=== PATIENT | female | born 1995 | race Caucasian/White ===

== ENCOUNTER 2019-03-21 10:45 | Outpatient (CLI) | payer BC, MEDICAID ==
[~2019-03-21] VITALS: Ht 154.9 cm; Wt 65.5 kg
[2019-03-21 10:50] VITALS: BP 123/74; PULSE 88; TEMP 98.2
[2019-03-21] MEDS ORDERED: PRENATAL VITAMI1 TA3 PO (10:59)
[2019-03-21] MEDS ORDERED: ZOLOFT 50MG50 MG PO (10:59)
--- NOTE | 2019-03-21 11:10 | NUR ---
G1 at 38.4 weeks gestation to LDR3 with her boyfriend with c/o possible SROM. Patient states that when she went to the bathroom around 0700 this morning there was a small "wet spot" on her underwear, she denies vaginal bleeding and reports good movement. Patient changed into gown and wedged to left side in bed. EFMs explained and applied. FHR 140 bpm and reactive. Irritable CTX pattern per toco, patient denies feeling any CTX. VSS. SVE /-2, amniotrace to vagina remains yellow. Plan of care reviewed with patient and boyfriend.
--- NOTE | 2019-03-21 11:30 | NUR ---
Discharge instructions reviewed, questions answered.
== END 2019-03-21 11:38 | disposition home or self-care (01) ==
LOC: LDRO 10:45
DX: Z34.03 Encounter for supervision of normal first pregnancy, third trimester (principal); Z3A.38 38 weeks gestation of pregnancy

== ENCOUNTER 2019-03-23 05:32 | Inpatient (IN) | payer MEDICAID ==
[2019-03-23] VITALS (56 sets, daily range): BP systolic 103–138; BP diastolic 56–85; PULSE 52–110; TEMP 97.4–98.3
[~2019-03-23] VITALS: Ht 152.4 cm; Wt 65.9 kg
[~2019-03-23 05:32] MED LIST: PRENATAL VITAMI1 TA3 PO; ZOLOFT 50MG50 MG PO
--- NOTE | 2019-03-23 05:45 | NUR ---
Pt arrived on unit escorted by boyfriend and with complaints of possible rupture. Pt reports occasional contractions and normal movement. EFM and toco monitors started. Amnitest negative. SVE by this RN /. Vital signs WNL. Plan of care for labor assessment reviewed.
--- NOTE | 2019-03-23 07:00 | NUR ---
Patient denies feeling any leaking of fluid but feels "wet." Dr. Loera called with report and order to do amniosure. 0713: Amniosure completed and sent to lab. Patient denies feeling contractions.
--- NOTE | 2019-03-23 07:40 | NUR ---
Amniosure positive. Dr. Loera called and orders received to admit and start pitocin per protocol. In patient room. plan of care discussed and patient agrees with plan of care. Consents signed. 0805: IV started in left wrist and LR infusing without difficulty. Labs collected from IV site and sent to lab. 0815: Pitocin started per protocol. Patient resting in bed, call light in reach and denies need.
[2019-03-23 08:36] LABS: BASO % 0.3 % (0.0-2.0); EOS # 0.1 (0.0-0.7); EOS % 1.2 % (0-4.0); GRAN # 5.4 (1.4-6.5); HEMOGLOBIN 11.3 g/dl (12.5-16.0); LYMPH # 1.3 (1.2-3.4); LYMPH % 17.3 % (20.0-51.0); MEAN CELL VOLUME 85 fl (80.0-100.0); MEAN CORPUSCULAR HEMOGLOBIN 27 pg (27.0-31.0); MEAN CORPUSCULAR HGB CONC 32 g/dl (33.0-37.0); MEAN PLATELET VOLUME 10.2 fl (7.4-10.4); MONO # 0.7 (0.1-0.6); MONO % 8.8 % (1.7-9.3); PLATELET COUNT 186 K/mm3 (130-400); RED BLOOD COUNT 4.12 M/mm3 (4.10-5.30); REDCELL DISTRIBUTION WIDTH-CV 13.3 % (11.5-14.5)
[2019-03-23 08:38] LABS: HEMATOCRIT 35.2 % (37.0-47.0)
--- NOTE | 2019-03-23 08:45 | NUR ---
0845: Dr. Loera at nurses station and reviews FHR since admission. 0845: SVE by Dr. Loera -2, bag of [place] felt and AROM with small amount of clear fluid noted. FHR reactive during and after AROM. Plan of care reviewed with patient and . Verbalize understanding. Dr. Loera gives verbal order at bedside that she can have an epidural when desires.
--- NOTE | 2019-03-23 10:00 | NUR ---
1000: Patient breathing through contractions and requests an epidural at this time. Israel Lambert CRNA called and notified of patient request. 1001: Patient off monitors and up to bathroom to void then back to bed resting.
--- NOTE | 2019-03-23 10:23 | NUR ---
1020: Israel Lambert CRNA at bedside and epidural procedure explained. Time out completed. 1023: Single shot given. No reaction to single shot. 1024: Epidural catheter placed. Epidural catheter secured to patients back and patient repositioned in bed, wedged left at 1030. See anesthesia records.
--- NOTE | 2019-03-23 11:58 | NUR ---
Dr. Loera at bedside, SVE /-2. Verbal order can increase pitocin to max of 30.
[2019-03-23] MEDS ORDERED: PERCOCET 325 MG1 TA2 PO (13:08)
[2019-03-23] MEDS ORDERED: MOTRIN 800800 MG/TAB PO (13:08)
--- NOTE | 2019-03-23 13:20 | NUR ---
1320: Dr. Loera reviews FHR and contraction pattern. To room, SVE /-[address] Loera. Verbal order to leave pitocin at 24mu/min.
--- NOTE | 2019-03-23 16:10 | NUR ---
1609: Dr. Loera in room. Sve /-1. Pitocin at 30mu/min. Verbal order to keep pitocin at 30 and recheck cervix in 1 hour and call with an update.
--- NOTE | 2019-03-23 17:42 | NUR ---
Patient repositioned to far right lateral and peanut ball placed. Pitocin decreased to 20mu/min per Dr. Loera order.
--- NOTE | 2019-03-23 17:48 | NUR ---
patient right lateral with peanut ball. FHR variable deceleration noted. Patient repositioned to left lateral then back to right lateral and peanut ball removed. FHR early decelerations occuring. 180: SVE anterior lip/100/0. FHR scalp stimulation noted with SVE. Dr. Loera called with an update. Will be in at 1830 to recheck her.
--- NOTE | 2019-03-23 18:15 | NUR ---
181: Recurrent FHR decelerations occuring during contractions down to 90 bpm. Pitocin off, Oxygen on and LR bolus started. Patient repositioned to right lateral. SVE unchanged. 1819: Dr. Loera at nurses station and reviews FHR and contraction pattern. To room to check patient.
--- NOTE | 2019-03-23 18:25 | NUR ---
1825: Dr. Loera at bedside, SVE /+1. Report to Abhijit Cuenca RN who assumes care of patient at this time. 1830: Patient begins pushing with contractions.
--- NOTE | 2019-03-23 18:30 | NUR ---
183- Dr. Loera at the bedside and pushing with pt. 1831- Pitocin restarted at 10ml/hr per Dr. Loera's order. 1836- of viable male . [place] placed on mom's abdomen. Cords clamped and cut. Care of the given to nursery RN at the bedside. 1838- of placenta. Pitocin started at 333ml/hr per order and protocol. Fundus firm and lochia WNL.
--- NOTE | 2019-03-23 21:30 | NUR ---
Attempted to get pt up to the bathroom. Pt reports feeling dizzy and lightheaded upon standing. Assisted pt back to the bed. Pt passed a fist size clot with moderate amount of lochia. Fundus firm. Vital signs WNL. Pericare done and pad changed while in bed. Will continue to monitor.
--- NOTE | 2019-03-23 22:15 | NUR ---
Pt up to the bathroom with assist x2. Pt not able to void at this time. Pericare done. Assisted pt to the wheelchair. Pt transferred to room 219. Assisted pt to the bed. Oriented to room, bed and call light within reach.
[2019-03-24 00:30] VITALS: BP 108/57; PULSE 76; TEMP 98.1
[2019-03-24 03:55] VITALS: BP 116/54; PULSE 65; TEMP 97.8
[2019-03-24 06:55] VITALS: BP 94/47; PULSE 63; TEMP 98.2
--- NOTE | 2019-03-24 09:06 | NUR ---
Initial visit; Parents thanked Marketing And Development Coordinator for offering congratulations and God's blessings for the of their son. Marketing And Development Coordinator thanked family for choosing [facility].
[2019-03-24 15:40] VITALS: BP 112/62; PULSE 77; TEMP 98.3
[2019-03-24 19:50] VITALS: BP 103/54; PULSE 80; TEMP 98.3
[2019-03-25 09:00] VITALS: BP 116/61; PULSE 71; TEMP 98.5
--- NOTE | 2019-03-25 11:41 | NUR ---
Congratulated the family on behalf of Rocio Cruz.
== END 2019-03-25 13:45 | disposition home or self-care (01) | DRG 807 ==
LOC: LDRO 05:32 → LDR 05:33 → LDRO 07:55 → LDR 07:56 → OB 07:56
PROVIDERS: ADMIT Obstetrics & Gynecology
PROC: 10E0XZZ Delivery of Products of Conception, External Approach (ICD-10-PCS; principal; 2019-03-23)
PROC: 0KQM0ZZ Repair Perineum Muscle, Open Approach (ICD-10-PCS; 2019-03-23)
DX: O42.92 Full-term premature rupture of membranes, unspecified as to length of time between rupture and onset of labor (principal); Z37.0 Single live birth; O99.62 Diseases of the digestive system complicating childbirth; K21.9 Gastro-esophageal reflux disease without esophagitis; O99.344 Other mental disorders complicating childbirth; F32.9 Major depressive disorder, single episode, unspecified; F41.9 Anxiety disorder, unspecified; O99.013 Anemia complicating pregnancy, third trimester; D64.9 Anemia, unspecified; O70.1 Second degree perineal laceration during delivery; Z3A.38 38 weeks gestation of pregnancy
CPT/HCPCS: J2590; J2795; J7120

== ENCOUNTER 2022-04-03 19:40 | Inpatient (IN) | payer BC ==
[2022-04-03] VITALS (17 sets, daily range): BP systolic 105–136; BP diastolic 59–89; PULSE 61–83; TEMP 98–98.4
[~2022-04-03] VITALS: Ht 152.4 cm; Wt 65.0 kg
[~2022-04-03 19:40] MED LIST changes: +MOTRIN 800800 MG/TAB PO; +PERCOCET 325 MG1 TA2 PO
--- NOTE | 2022-04-03 19:50 | NUR ---
960157.1 G2L1 arrives on unit via w/c with c/o regular contractions. To LDR5. Changes into clean gown. Reports normal movement, and bloody show. Denies any LOF. 1956EFM explained and placed. VS obtained. Assessment completed. VE by this RN /-2, ELEN. 2004Dr. Loera on unit and updated on pt. See physician notification. Pt updated on plan of care. 2014IV to left FA. Routine labs obtained. Pt requesting epidural. LR bolus infusing. 2025Dr. Loera at bedside. Consent forms explained and signed. 2049C. Neto DUQUE at bedside for epidural placement. Pt to edge of bed. FHR tracing intermittently due to maternal position. RN remains at bedside. 2055Epidural placed and single shot at this time by Flower Duque CRNA. See anesthesia record. 2100Pt wedge left. EFM adj and tracing well. 2105Dr. Loera at bedside. AROM at this time for clear fluid. SVE per Dr. Loera /0. 2115Pt reports more pain in right side. Repositioned wedge right. Pt pushes pt controlled epidural bolus button. Plan of care and safety precautions reviewed. Call light within reach. 2242[place] Loera at bedside. SVE per provider 9-10. 2245Catheter placed. Patient later with leg in stirrup. 230Dr. Loera at bedside. SVE per provider C/0. Pt pushes with contraction. FHR to 50bmp. Pt right and left lateral. LR bolus infusing. Dr. Loera discusses VAVD with pt who agrees to plan of care. 2311Vacuum to occiput by Dr. Loera. 2313Pop off. 2314Delivery of viable male . Nares and mouth bulb suctioned by Dr. Loera. Cord clamped x2 and cut by Dr. Loera. [place] dried and stimulated. Care of assumed byFlower Fitzgerald RN. 2316Spontaneous and intact delivery of placenta. Pitocin to 333ml/hr per orders. Fundus firm, midline, and bleeding small. Second degree laceration repaired by Dr. Loera. Giselle care provided, pads changed, and ice pack to perineum. See anesthesia record, doctor dictation, and nurses notes.
[2022-04-03 20:30] LABS: BASO % 0.3 % (0.0-2.0); EOS % 0.3 % (0.0-4.0); GRAN % 77.9 % (42.2-75.2); HEMOGLOBIN 10.7 g/dl (12.5-16.0); LYMPH # 1.3 K/mm3 (1.2-3.4); LYMPH % 13.1 % (20.0-51.0); MEAN CELL VOLUME 80 fl (80.0-100.0); MEAN CORPUSCULAR HEMOGLOBIN 25 pg (27-31); MEAN CORPUSCULAR HGB CONC 31 g/dl (33.0-37.0); MEAN PLATELET VOLUME 9.8 fl (7.4-10.4); MONO # 0.7 K/mm3 (0.1-0.6); MONO % 7.2 % (1.7-9.3); PLATELET COUNT 248 K/mm3 (130-400); RED BLOOD COUNT 4.26 M/mm3 (4.10-5.30); REDCELL DISTRIBUTION WIDTH-CV 14.4 % (11.5-14.5)
[2022-04-03 20:31] LABS: HEMATOCRIT 34.2 % (37.0-47.0)
[2022-04-03] MEDS ORDERED: SLOW FE142 MG PO (20:44)
[2022-04-03] MEDS ORDERED: ADDERALL5 MG PO ×2 (20:44)
[2022-04-03] MEDS ORDERED: PRILOSEC 20MG20 MG PO (20:45)
[2022-04-04] VITALS (9 sets, daily range): BP systolic 100–124; BP diastolic 55–68; PULSE 61–81; TEMP 97.6–98.4
--- NOTE | 2022-04-04 02:20 | NUR ---
0220Pt to bathroom to void via wheelchair. Voids without difficulty. [place] size clot expressed in toilet. Pt reports mild dizziness. Pt to room 212 via wheelchair. Pivot to bed. Oriented to room and plan of care. Fundal massage by this RN. [place] size clot expressed. Fundus firm, and midline. No free flow noted. Pt reports dizziness resolved. VSS. Will continue to monitor.
--- NOTE | 2022-04-04 06:30 | NUR ---
Ambulates to the bathroom. States has a small clot. Fundal pressure done, no clots noted.
--- NOTE | 2022-04-04 10:12 | NUR ---
Initial visit; Patient sleeping, Swimming Teacher left card of congratulations and God's blessings for the of their son along with information regarding the availability of [facility] at our hospital.
[2022-04-04] MEDS ORDERED: MOTRIN 800800 MG/TAB PO (10:30)
--- NOTE | 2022-04-04 17:15 | NUR ---
In nursery holding baby. Tylenol 1000 mg given per request and as ordered.
[2022-04-05 03:30] VITALS: BP 105/64; PULSE 60; TEMP 97.9
--- NOTE | 2022-04-05 07:00 | NUR ---
Ambulates to the nursery. Denies any discomfort or pain at this time.
[2022-04-05 07:15] VITALS: BP 113/68; PULSE 67; TEMP 97.7
--- NOTE | 2022-04-05 10:00 | NUR ---
In nursery with baby and significant other. 1051 Tylenol 1000 mg given per request and as ordered.
--- NOTE | 2022-04-05 11:15 | NUR ---
Discharge instructions given, verbalizes understanding. To border status.
== END 2022-04-05 11:15 | disposition home or self-care (01) | DRG 807 ==
LOC: LDRO 19:40 → LDR 20:05 → OB 04-04 02:50
PROVIDERS: ADMIT Obstetrics & Gynecology
PROC: 10D07Z6 Extraction of Products of Conception, Vacuum, Via Natural or Artificial Opening (ICD-10-PCS; principal; 2022-04-03)
PROC: 0KQM0ZZ Repair Perineum Muscle, Open Approach (ICD-10-PCS; 2022-04-03)
DX: O99.02 Anemia complicating childbirth (principal); Z37.0 Single live birth; O76 Abnormality in fetal heart rate and rhythm complicating labor and delivery; O70.1 Second degree perineal laceration during delivery; D64.9 Anemia, unspecified; O99.344 Other mental disorders complicating childbirth; F41.9 Anxiety disorder, unspecified; F32.A Depression, unspecified; F90.9 Attention-deficit hyperactivity disorder, unspecified type; Z86.16 Personal history of COVID-19; Z3A.38 38 weeks gestation of pregnancy
CPT/HCPCS: J2590; J7120